=== PATIENT | female | born 1980 | race Hispanic/Latino ===

== ENCOUNTER 2022-09-09 12:44 | Emergency (ER) | payer OTHER ==
[~2022-09-09] VITALS: Ht 157.5 cm; Wt 70.8 kg
[2022-09-09] MEDS ORDERED: KETOROLAC 60 MG VIAL (30MG/ML) IM ONE (14:30)
[2022-09-09] MEDS ORDERED: IBUP-2070 PO (14:57)
[2022-09-09] MEDS ORDERED: GLYC15DR5 OP (14:57)
[2022-09-09 16:08] VITALS: BP 134/89
== END 2022-09-09 16:08 | disposition home or self-care (01) ==
LOC: EDH 12:44
DX: S02.2XXA Fracture of nasal bones, initial encounter for closed fracture (principal); S00.12XA Contusion of left eyelid and periocular area, initial encounter; H11.32 Conjunctival hemorrhage, left eye; Z79.1 Long term (current) use of non-steroidal anti-inflammatories (NSAID); X58.XXXA Exposure to other specified factors, initial encounter; Y93.89 Activity, other specified; Y92.89 Other specified places as the place of occurrence of the external cause; Y99.8 Other external cause status
CPT/HCPCS: 99284; 70486; 96372; J1885

== ENCOUNTER 2024-02-29 10:48 | Emergency (ER) | payer OTHER ==
[~2024-02-29] VITALS: Ht 160 cm; Wt 72.1 kg
[~2024-02-29 10:48] MED LIST: GLYC15DR5 OP; IBUP-2070 PO
[2024-02-29 11:47] LABS: BASOPHILS # (AUTO) 0.01 K/uL (0.00-0.20); BASOPHILS % (AUTO) 0.1 % (0.0-5.0); EOSINOPHILS # (AUTO) 0.14 K/uL (0.00-0.70); HEMATOCRIT 37.1 % (36-48); IMMATURE GRANULOCYTE ABSOLUTE 0.03 K/uL (0-1); LYMPHOCYTES # (AUTO) 1.6 K/uL (1.0-4.8); LYMPHOCYTES % (AUTO) 22.8 % (21.0-51.0); MEAN CORPUSCULAR HEMOGLOBIN 24.6 pg (27.0-33.0); MEAN CORPUSCULAR HGB CONC 31.3 g/dL (32.0-36.0); MEAN CORPUSCULAR VOLUME 78.8 fL (79-99); MONOCYTES # (AUTO) 0.4 K/uL (0.1-1.0); MONOCYTES % (AUTO) 6.1 % (3.0-13.0); NEUTROPHILS # (AUTO) 4.7 K/uL (1.8-7.7); NEUTROPHILS % (AUTO) 68.6 % (40.0-77.0); PLATELET COUNT (AUTO) 489 K/uL (130-400); RED BLOOD CELL COUNT(AUTO) 4.71 MIL/uL (4.00-5.50); RED CELL DISTRIBUTION WIDTH 17.3 % (11.0-15.5); WHITE BLOOD COUNT (AUTO) 6.9 K/uL (4.8-10.8)
[2024-02-29 11:48] LABS: APPEARANCE,URINE CLOUDY (CLEAR); BILIRUBIN,URINE NEGATIVE (NEGATIVE); COLOR,URINE LIGHT-YELLOW (YELLOW); GLUCOSE, URINE (UA) NEGATIVE (NEGATIVE); KETONES,URINE NEGATIVE (NEGATIVE); LEUKOCYTE ESTERASE ,URINE NEGATIVE Leu/uL (NEGATIVE); NITRATE,URINE NEGATIVE (NEGATIVE); OCCULT BLOOD,URINE NEGATIVE (NEGATIVE); PH,URINE 5.5 (5.0-8.0); PROTEIN,URINE NEGATIVE (NEGATIVE); UROBILINOGEN,URINE 0.2 mg/dL (0.2-1.0)
[2024-02-29 11:53] LABS: ADD UA MICROSCOPIC YES
[2024-02-29] MEDS: MORPHINE 4 MG SYG IVP ONE (12:04)
[2024-02-29] MEDS: ONDANSETRON 4MG INJ IVP ONE (12:04)
[2024-02-29] MEDS: 0.9%NACL 1000ML 1,000 ML IV ONE (12:06)
[2024-02-29 12:12] LABS: BACTERIA,URINE RARE /HPF (None Seen); MUCUS,URINE RARE LPF (None Seen); SQUAMOUS EPITHELIAL CELL,UR MANY /HPF (0-2)
[2024-02-29 12:13] LABS: CREATININE 0.6 mg/dL (0.5-1.0); POTASSIUM 3.4 mmol/L (3.5-5.1)
[2024-02-29 12:18] LABS: ALBUMIN 2.9 g/dL (3.5-5.0); BILIRUBIN,TOTAL 0.3 mg/dL (0.2-1.0); TOTAL PROTEIN, SERUM 8.2 g/dL (6.0-8.3)
[2024-02-29 12:52] LABS: CREATININE 0.6 mg/dL (0.5-1.0); POTASSIUM 3.7 mmol/L (3.5-5.1)
[2024-02-29] MEDS ORDERED: IOHEXOL-350 75 ML VIAL IV ONE (13:27)
[2024-02-29] MEDS ORDERED: CLIN-141 PO (14:49)
[2024-02-29] MEDS ORDERED: POLY17PO4 PO (14:49)
[2024-02-29] MEDS ORDERED: IBUP-2070 PO (14:49)
[2024-02-29 15:16] VITALS: BP 133/68; PULSE 68; RESP 17; O2SAT 96
[2024-02-29] MEDS: CEFTRIAXONE 1G VIAL IVPB ONE (15:16)
[2024-02-29] MEDS: KETOROLAC 30MG VIAL (30MG/ML) IVP ONE (15:16)
== END 2024-02-29 15:56 | disposition home or self-care (01) ==
LOC: EDH 10:48
DX: L02.211 Cutaneous abscess of abdominal wall (principal); K57.30 Diverticulosis of large intestine without perforation or abscess without bleeding; K59.00 Constipation, unspecified; Z79.899 Other long term (current) drug therapy; Z90.49 Acquired absence of other specified parts of digestive tract; Z98.890 Other specified postprocedural states
CPT/HCPCS: 99285; 74177; 96365; 96375 ×2; 80053; 85025; 87040 ×2; 87076; 87077; 87186; 83605; 81001; 81025; 36415; 87070; 80048; J7030; J0696; J2405; J2270; J1885; Q9967